=== PATIENT | female | born 1995 | race Two or more races ===

== ENCOUNTER 2021-05-23 09:56 | Observation (INO) | payer OTHER ==
[~2021-05-23] VITALS: Ht 152.4 cm; Wt 73.9 kg
== END 2021-05-23 12:12 | disposition home or self-care (01) ==
LOC: LDRP 09:56 → EEVIPCON 09:56
PROVIDERS: ADMIT Specialist; ATTEND Specialist
DX: O36.8120 Decreased fetal movements, second trimester, not applicable or unspecified (principal); Z87.891 Personal history of nicotine dependence; Z3A.22 22 weeks gestation of pregnancy
CPT/HCPCS: 59025; 76805; 81002; G0378